=== PATIENT | female | born 1955 | race Caucasian/White ===

== ENCOUNTER → 2019-12-16 | Outpatient (CLI) | payer BC | END | disposition home or self-care (01) | LOC: CFH 12:37 | PROVIDERS: ATTEND Nurse Practitioner Family | DX: M79.89 Other specified soft tissue disorders (principal) ==

== ENCOUNTER → 2020-08-10 | Outpatient (CLI) | payer MEDICARE | END | disposition home or self-care (01) | LOC: CFH 12:44 | PROVIDERS: ATTEND Nurse Practitioner Family | DX: N93.0 Postcoital and contact bleeding (principal); Z78.0 Asymptomatic menopausal state | CPT/HCPCS: 76830 ==